=== PATIENT | male | born 1985 | race Caucasian/White ===

== ENCOUNTER 2019-02-13 13:13 | Emergency (ER) | payer SELFPAY ==
[~2019-02-13] VITALS: Ht 190.5 cm; Wt 104.3 kg
[2019-02-13] MEDS ORDERED: IBUP600 PO (14:15)
[2019-02-13] MEDS ORDERED: HYDR1TAB94 PO (14:15)
== END 2019-02-13 14:49 | disposition home or self-care (01) ==
LOC: ER 13:13
DX: S92.351A Displaced fracture of fifth metatarsal bone, right foot, initial encounter for closed fracture (principal); W19.XXXA Unspecified fall, initial encounter
CPT/HCPCS: 29515; 73630; 99283-25; A9270-GY

== ENCOUNTER 2020-10-30 06:13 | Day surgery (SDC) | payer BC ==
[~2020-10-30] VITALS: Ht 188 cm; Wt 107.9 kg
[~2020-10-30 06:13] MED LIST: HYDR1TAB94 PO; IBUP600 PO; NAPR220 PO
--- NOTE | 2020-10-30 07:00 | NUR ---
Patient up to Ambulate independently. Gait steady. History, Chart, Medications and Allergies reviewed before start of procedure. Lungs clear T/O to Auscultation. Patient reports completing Chlorhexadine shower X2 prior to admission to hospital. Patient confirms NPO status and agrees with scheduled surgery.
--- NOTE | 2020-10-30 10:52 | NUR ---
DISCHARGE SUMMARY PT A&OX4, VSS, VOIDED, PAIN TREATED WITH 1 TAB PERCOCET, AMBULATED, DENIES COB/CP/DIZZINESS/LIGHTHEADEDNESS/N&V, MITUL H20 AND CRACKERS. WALKED PT OUT TO MEET TO GO HOME WITH ALL PERSONAL POSSESSIONS AND DC PACKET AND 1 NARC SCRIPT AND WORK NOTE. IV DC'D.
== END 2020-10-30 10:45 ==
LOC: ORSCMMR 06:13
PROVIDERS: Surgery
PROC: 0YU54JZ Supplement Right Inguinal Region with Synthetic Substitute, Percutaneous Endoscopic Approach (ICD-10-PCS; principal; 2020-10-30 07:30)
PROC: 8E0W4CZ Robotic Assisted Procedure of Trunk Region, Percutaneous Endoscopic Approach (ICD-10-PCS; principal; 2020-10-30 07:30)
DX: K40.90 Unilateral inguinal hernia, without obstruction or gangrene, not specified as recurrent (principal)
CPT/HCPCS: 49650; S2900; A9270; C1781; J0690; J1100; J1885; J2250; J2405; J2704; J3010; J7120

== ENCOUNTER 2021-12-30 14:50 | Emergency (ER) | payer OTHER ==
[~2021-12-30] VITALS: Ht 188 cm; Wt 108.9 kg
== END 2021-12-30 17:30 | disposition home or self-care (01) ==
LOC: ER 14:50
DX: S61.213A Laceration without foreign body of left middle finger without damage to nail, initial encounter (principal); Z87.891 Personal history of nicotine dependence; X58.XXXA Exposure to other specified factors, initial encounter
CPT/HCPCS: 12001; 90471; 90714; 99282-25

== ENCOUNTER 2022-04-13 13:32 | Emergency (ER) | payer OTHER ==
[~2022-04-13] VITALS: Ht 190.5 cm; Wt 108.9 kg
[2022-04-13] MEDS ORDERED: CEPH500 PO (14:31)
== END 2022-04-13 14:39 | disposition home or self-care (01) ==
LOC: ER 13:32
DX: L03.115 Cellulitis of right lower limb (principal); Z88.1 Allergy status to other antibiotic agents
CPT/HCPCS: 73562-RT

== ENCOUNTER 2022-04-17 18:38 | Emergency (ER) | payer OTHER ==
[~2022-04-17] VITALS: Ht 190.5 cm; Wt 108.9 kg
[~2022-04-17 18:38] MED LIST changes: +CEPH500 PO
[2022-04-17 19:18] LABS: BASOPHILS ABSOLUTE AUTO 0.05 K/mm3 (0.00-0.23); BASOPHILS PERCENT AUTO 1 % (0-2); EOSINOPHILS ABSOLUTE AUTO 0.13 K/mm3 (0.00-0.68); EOSINOPHILS PERCENT AUTO 1 % (0-6); Hematocrit 41.4 % (37.0-53.0); Hemoglobin 13.9 g/dL (13.5-17.5); IMMATURE GRAN ABSOLUTE AUTO 0.03 K/mm3 (0.00-0.10); IMMATURE GRAN PERCENT AUTO 0 % (0-1); LYMPHOCYTES ABSOLUTE AUTO 2.32 K/mm3 (0.84-5.20); LYMPHOCYTES PERCENT AUTO 21 % (21-46); MONOCYTES ABSOLUTE AUTO 1.01 K/mm3 (0.16-1.47); MONOCYTES PERCENT AUTO 9 % (4-13); Mean Corpuscular HGB 29.4 pg (26.0-34.0); Mean Corpuscular HGB Conc 33.6 g/dL (31.5-36.5); Mean Corpuscular Volume 88 fL (80-100); Mean Platelet Volume 9.6 fL (9.1-12.4); NEUTROPHILS ABSOLUTE AUTO 7.43 K/mm3 (1.96-9.15); NEUTROPHILS PERCENT AUTO 68 % (41-73); Platelet Count 290 K/mm3 (150-400); RDW Coefficient Variation 11.7 % (11.7-14.2); Red Blood Cell Count 4.72 M/mm3 (4.30-5.90); White Blood Cell Count 10.97 K/mm3 (4.00-11.30)
[2022-04-17 19:44] LABS: Albumin, Blood 3.9 g/dL (3.4-5.0); Albumin/Globulin Ratio 0.9 (0.8-1.8); Bilirubin, Total 0.9 mg/dL (0.1-1.0); Bun/Creatinine Ratio 15.4 (12.0-20.0); Calcium, Blood 9.7 mg/dL (8.5-10.1); Creatinine, Blood 1.23 mg/dL (0.60-1.20); Globulin, Blood 4.2 g/dL (2.2-4.0); Potassium, Blood 3.6 mmol/L (3.5-5.5); Total Protein, Blood 8.1 g/dL (6.4-8.2)
[2022-04-17] MEDS ORDERED: CEPH500 PO (23:05)
== END 2022-04-17 23:35 | disposition home or self-care (01) ==
LOC: ER 18:38
PROVIDERS: Emergency Medicine
DX: M70.41 Prepatellar bursitis, right knee (principal); Z88.1 Allergy status to other antibiotic agents; Z87.891 Personal history of nicotine dependence
CPT/HCPCS: 36415; 80053; 85025